=== PATIENT | male | born 1985 | race Caucasian/White ===

== ENCOUNTER 2020-01-28 13:33 | Emergency (ER) | payer MEDICAID ==
[~2020-01-28] VITALS: Ht 172.7 cm; Wt 108.0 kg
--- NOTE | 2020-01-28 13:52 | NUR ---
[email or web address], medical screening exam in progress
--- NOTE | 2020-01-28 14:21 | NUR ---
Patient discharged to home in stable condition & steady gait. Written and verbal after care instructions given to patient by MD. Patient verbalized understanding & compliance of instructions. Stressed follow up with his primary doctor or return to ER for worsening s/s.
== END 2020-01-28 14:22 | disposition home or self-care (01) ==
LOC: ER 13:33
DX: N62 Hypertrophy of breast (principal)
CPT/HCPCS: 71045; A4663